=== PATIENT | male | born 1945 | race Caucasian/White ===

== ENCOUNTER 2021-12-16 09:18 | Outpatient (CLI) | payer OTHER, SELFPAY ==
--- NOTE | 2021-12-16 10:58 | W.ANESCHARGE ---
Anesthesia Charges Start Date/Time Anesthesia Start Date: 12/16/21 Anesthesia Start Time: 10:03 Stop Date/Time Anesthesia Stop Date: 12/16/21 Anesthesia Stop Time: 10:53 Summary Emergency: No Extremes of Age: Over 70-CPT [id number]
--- NOTE | 2021-12-16 11:47 | W.ANESCHARGE ---
Anesthesia Charges Start Date/Time Anesthesia Start Date: 12/16/21 Anesthesia Start Time: 10:03 Stop Date/Time Anesthesia Stop Date: 12/16/21 Anesthesia Stop Time: 10:53 Summary Emergency: No
== END 2021-12-16 09:19 | disposition home or self-care (01) ==
PROVIDERS: Visit Provider Surgery
DX: R19.8 Other specified symptoms and signs involving the digestive system and abdomen (principal); R19.7 Diarrhea, unspecified; K57.30 Diverticulosis of large intestine without perforation or abscess without bleeding
CPT/HCPCS: 43239; 45380; 813; 88305; 99100; J2704

== ENCOUNTER 2023-03-18 10:27 | Emergency (ER) | payer OTHER, SELFPAY ==
[2023-03-18 10:44] VITALS: BP 131/70; PULSE 64; RESP 18; TEMP 36.3; O2SAT 97; BMI 35.0
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
--- OUTSIDE RECORDS SUMMARY | 2023-03-18 11:12 | XMS_ITS | Continuity of Care Document ---
Author Name Unknown Organization [facility] Address [address] [place] [address] Phone Care Team Providers Care Boat Wrapper Name Role Phone Marlon Colon DO Unavailable Unavailable Results Test Name Date and Time Measure Units Reference Range Abnormal Flag Status Comments Panel Description: CULTURE, AEROBIC AND ANAEROBI C Final CULTURE 13:00:00 Final CULTURE, ANAEROBIC BACTERIA W/GRAM STAIN MICRO NUMBER: [id number] TEST STATUS: FINAL SPECIMEN SOURCE: WOUND ON HAND SPECIMEN COMMENTS: ADEQUATE GRAM STAIN: TEST NOT PERFORMED. SPECIMEN QUANTITY IS NOT SUFFICIENT TO PERFORM THE TEST REQUESTED. RESULT: NO ANAEROBES ISOLATED.Test Performed at:[facility] [address] [address] ANISHA AGUILERA M.D. CULTURE 13:00:00 Final CULTURE, AEROB IC BACTERIA MICRO NUMBER: [id number] TEST STATUS: FINAL SPECIMEN SOURCE: WOUND ON HAND SPECIMEN COMMENTS: ADEQUATE RESULT: LIGHT GROWTH OF SERRATIA MARCESCENS MODERATE GROWTH OF YEAST SCANT GROWTH OF GROUP B STREPTOCOCCUS ISOLATED BETA-HEMOLYTIC STREPTOCOCCI ARE PREDICTABLY SUSCEPTIBLE TO PENICILLIN AND OTHER BETA-LACTAMS. SUSCEPTIBILITY TESTING NOT ROUTINELY PERFORMED. NORMAL SKIN BRIGIDO ALSO PRESENT. S.MARCESCENS INT МАРИЯ AMOX/CLAVULANATE R >16/8 AMPICILLIN I 16 CEFAZOLIN R >16 CEFEPIME S <8 CEFTRIAXONE S <4 CEFUROXIME R >16 CIPROFLOXACIN S <1 GENTAMICIN S <1 IMIPENEM S <4 LEVOFLOXACIN S <2 PIP/TAZOBACTAM S <8 TOBRAMYCIN S <2 TRIMETHOPRIM/SULF A S <0.5/9.5Legend:S = Susceptible I = Intermediate R = Resistant NS = Not Susceptible* = Not Tested NR = Not Reported nn = See Therapy CommentsTest Performed at:[id number] [place] [address] ANISHA AGUILERA M.D. Advance Directives Directive Yes / No Effective Date File Name No Information Encounters Encounter Description Practice Location Reason(s) For Visit Diagnoses Date Provider Providers Copied on Encounter [facility], [address], [place], [address], tel:[phone] No Information 3 Isaiah Mason. [facility] [address], [place], [address], [place]. tel:[phone] Family History Family Member Type Diagnosis Age At Onset No Information Payers Payer name Insurance type Covered republican ID Authoriza tion(s) No Information Social History Type Description Quantity Date Captured Comments Sex Male Smoking Status No Information Chief Complaint And Reason For Visit No Information Reason For Referral Reason For Referral No Information History Of Present Illness Encounter Date Complaint History Of Prese nt Illness No Information Functional Status Date Functional Assessmen t No Information Instructions Date Instruction Additional Infor mation No Information Assessments Type Assessment Date No Information Patient Care Teams Name Effective Dates (start - stop) Status Members No Information
== END 2023-03-18 12:12 | disposition home or self-care (01) ==
PROVIDERS: Emergency Provider Emergency Medicine Emergency Medical Services
DX: S20.219A Contusion of unspecified front wall of thorax, initial encounter (principal); S60.222A Contusion of left hand, initial encounter; S10.93XA Contusion of unspecified part of neck, initial encounter; V43.52XA Car driver injured in collision with other type car in traffic accident, initial encounter
CPT/HCPCS: 70450; 71046; 72125; 73130; 99284; 99285

== ENCOUNTER 2023-04-13 13:52 | Outpatient (CLI) | payer OTHER, SELFPAY ==
--- OUTSIDE RECORDS SUMMARY | 2023-04-13 13:57 | XMS_ITS | Continuity of Care Document ---
Author Name Unknown Organization [facility] Address [address] [place] [address] Phone Care Team Providers Care Rotating Equipment Engineer Name Role Phone Marlon Colon DO Unavailable Unavailable Results Test Name Date and Time Measure Units Reference Range Abnormal Flag Status Comments Panel Description: CULTURE, AEROBIC AND ANAEROBI C Final CULTURE 13:00:00 Final CULTURE, ANAEROBIC BACTERIA W/GRAM STAIN MICRO NUMBER: [id number] TEST STATUS: FINAL SPECIMEN SOURCE: WOUND ON HAND SPECIMEN COMMENTS: ADEQUATE GRAM STAIN: TEST NOT PERFORMED. SPECIMEN QUANTITY IS NOT SUFFICIENT TO PERFORM THE TEST REQUESTED. RESULT: NO ANAEROBES ISOLATED.Test Performed at:[facility] [address] [address] ANISHA AGUILERA M.D. CULTURE 13:00:00 Final CULTURE, AEROB IC BACTERIA MICRO NUMBER: [id number] TEST STATUS: FINAL SPECIMEN SOURCE: WOUND ON [...] Reported nn = See Therapy CommentsTest Performed at:[facility] [place] [address] ANISHA AGUILERA M.D. Advance Directives Directive Yes / No Effective Date File Name No Information Encounters Encounter Description Practice Location Reason(s) For Visit Diagnoses Date Provider Providers Copied on Encounter [facility], [address], [place], [address], tel:[phone] No Information 3 Isaiah Mason. [facility] [address], [place], [address], [place]. tel:[phone] Family History Family Member Type Diagnosis Age At Onset No Information Payers Payer name Insurance type Covered libertarian ID Authoriza tion(s) No Information Social History [...]
--- NOTE | 2023-04-13 15:00 | CRLHL7_ITS ---
For Patients: As a result of the Century Cures Act, medical imaging exams and procedure reports are released immediately into your electronic medical record. You may view this report before your referring provider. If you have questions, please contact your health care provider. INDICATION: Cardiomyopathy, chronic atrial fibrillation, dyspnea TECHNIQUE: Chest radiograph 3 views COMPARISON: None FINDINGS: The sensitivity and specificity of the exam are moderately limited by the patient`s body habitus. Mediastinum: The mediastinum is normal in appearance. Mild stable cardiomegaly is noted. Previous median sternotomy with mitral valve replacement noted. Lung: Bilateral pulmonary hyperinflation and lucency is noted. No sign of pleural effusion seen. No pneumothorax is identified. Bone and Soft tissue: Unremarkable for age. IMPRESSIONS: 1. Bilateral pulmonary hyperinflation and lucency is noted. This is suggestive of moderate, stable pulmonary emphysema. 2. Mild stable cardiomegaly is noted. Dictated by Killian Rizzo MD @ 04/15/2023 9:16:49 AM Dictated by: Killian Rizzo MD @ 04/15/2023 09:16:57 (Electronically Signed)
== END 2023-04-13 13:53 | disposition home or self-care (01) ==
PROVIDERS: Visit Provider Internal Medicine Pulmonary Disease
DX: I42.9 Cardiomyopathy, unspecified (principal); I51.7 Cardiomegaly; I35.1 Nonrheumatic aortic (valve) insufficiency; I48.20 Chronic atrial fibrillation, unspecified; R06.00 Dyspnea, unspecified
CPT/HCPCS: 71046; 93306